=== PATIENT | female | born 1965 | race Caucasian/White ===

== ENCOUNTER 2017-09-13 22:14 | Emergency (ER) | payer OTHER, MEDICAID ==
[2017-09-14] MEDS: METHYLPREDNISOLONE 125 MG INJ IM (01:44)
[2017-09-14] MEDS: IPRATROPIUM (NEB) 0.5 MG/2.5 ML AMP NEB (01:51)
[2017-09-14] MEDS: ALBUTEROL 0.083% (NEB) 2.5 MG/3 ML AMP NEB (02:01)
== END 2017-09-14 04:46 | disposition home or self-care (01) ==
LOC: E/R 22:14 → FTE 22:14
DX: J02.9 Acute pharyngitis, unspecified (principal)
CPT/HCPCS: 71045; 94664; 96372; 99284-25